=== PATIENT | male | born 1960 | race Caucasian/White ===

== ENCOUNTER → 2017-08-23 08:18 | Outpatient (CLI) | payer BC, SELFPAY ==
[2017-08-23 09:34] LABS: Cholesterol 172 mg/dL (200); Glucose 91 mg/dL (74-106); High Density Lipoprotein 46 mg/dL; PSA,Total - Annual Screen 0.26 ng/mL (0.00-4.00); Triglycerides 56 mg/dL; Very Low Density Lipoprotein 11 mg/dL (5-40)
== END ==
PROVIDERS: Family Provider Nurse Practitioner Family; PCP Nurse Practitioner Family; Visit Provider Nurse Practitioner Family
DX: Z12.5 Encounter for screening for malignant neoplasm of prostate (principal); Z13.6 Encounter for screening for cardiovascular disorders; Z13.1 Encounter for screening for diabetes mellitus
CPT/HCPCS: 36415; 80061; 82947; 84153; G0103

== ENCOUNTER 2019-01-07 06:46 | Emergency (ER) | payer BC, SELFPAY ==
[2019-01-07 06:47] VITALS: BP 143/92; PULSE 79; RESP 18; TEMP 36.6; O2SAT 100; BMI 22.7
--- NOTE | 2019-01-07 08:05 | ED.VIS.GEN ---
History of Present Illness Chief Complaint: Other, Pain/Inj Narrative: Patient presenting due to concern for the possibility of a hernia. Patient states that he was lifting something at work and he felt a sudden onset of pain in his right groin with bulging in that area. Patient states that the pain and bulging seems to get worse when he stands better when he lays flat. Patient states that he is never had any prior similar episodes like this in the past. Pain is mild, worse with Valsalva or standing or lifting. He denies any nausea or vomiting. Patient has a underlying history of having a laparoscopic appendectomy in the past. Review of systems otherwise negative. Past Medical History - Allergies and Home Meds Allergies/Adverse Reactions: Allergies No Known Allergies Allergy (Verified 01/07/19 06:49) Primary Care Physician: Jose Coughlin NP-C [Primary Care Provider] - Past Medical History: None Surgical History: appendectomy Smoking Status: Current every day smoker Review of Systems All systems negative except as indicated Genitourinary: Reports: - - Inguinal pain and bulging Physical Exam Vital Signs/Narrative: Vital Signs Temp Pulse Resp BP Pulse Ox 01/07/19 06:47 98 F 79 18 143/92 H 100 General: Well nourished, Well developed, No Acute Distress Head: Normocephalic, Atraumatic Eyes: Perrl, EOMI ENT: Moist mucous membranes, No rhinorrhea Neck: Supple, Nontender Cardiovascular: Regular rate, Regular rhythm, No murmurs Respiratory: No distress, CTA bilaterally, Chest nontender Abdomen: Soft, Nontender, Nondistended, Normal bowel sounds : - - exam demonstrates testicles and a normal lie. Standing or Valsalva is able to reproduce a direct inguinal hernia with a palpable defect in the patient's inguinal ring. This is reducible with pressure. It is tender to palpation. No evidence of overlying skin changes. Back: Nontender, Normal Inspection Extremities: Nontender, No edema Skin: Normal color, No rash Neurological: Alert, Oriented x3, Cranial nerves II-XII grossly intact, Normal Strength, Normal Sensation Psychological: Normal affect, Normal Mood Diagnostic/Tx/Re-eval - Medical Decision Making Patient presented secondary to bulging in his groin. Physical exam demonstrates a direct reducible inguinal hernia with a palpable defect in the patient's inguinal canal. Patient will be placed on lifting restrictions for work. As this is easily reproducible and the patient simply just stands, I am suspicious that the patient likely will require surgical repair. Patient has had surgery with Dr. Lyon in the past, requests referral back to Dr. Lyon. Patient also will follow-up with [facility]. ED Disposition - Plan for ED Patient: Disposition: Home or Assisted Living Diagnosis: Direct inguinal hernia of right side Instructions: HERNIA (Inguinal, Ventral, Umbilical) Referrals: Gael Lyon MD [STAFF PHYSICIAN] - As soon as possible [facility] [GROUP OF PHYSICIANS] - As soon as possible
[2019-01-07 08:25] VITALS: BP 115/85; PULSE 79; RESP 16; O2SAT 98
== END 2019-01-07 08:26 | disposition home or self-care (01) ==
LOC: ED 08:19
PROVIDERS: Emergency Provider Emergency Medicine; Family Provider Nurse Practitioner Family; PCP Nurse Practitioner Family
DX: K40.90 Unilateral inguinal hernia, without obstruction or gangrene, not specified as recurrent (principal); F17.200 Nicotine dependence, unspecified, uncomplicated
CPT/HCPCS: 99282

== ENCOUNTER 2019-02-20 05:57 | Day surgery (SDC) | payer BC, SELFPAY ==
[2019-02-12 15:05] VITALS: BMI 22.7
--- NOTE | 2019-02-19 06:12 | EKG12_ITS ---
Test Reason : PRE-OP Blood Pressure : / mmHG Vent. Rate : 067 BPM Atrial Rate : 067 BPM P-R Int : 148 ms QRS Dur : 092 ms QT Int : 404 ms P-R-T Axes : 067 060 044 degrees QTc Int : 426 ms Normal sinus rhythm Normal ECG Confirmed by LURDES MARISCAL, DAVY ([id number]), technical editor FREDA ESPINOZA ([id number]) on 02/25/2019 11:13:42 AM Referred By: Gael Lyon Confirmed By:VIPUL CHATMAN MD
[2019-02-19 07:26] LABS: Hematocrit 46.2 % (40-54); Hemoglobin 15.4 g/dL (13.0-16.5); Mean Corp Hgb Conc 33.3 g/dL (32-36); Mean Corpuscular Hgb 31.9 pg (27.0-32.0); Mean Corpuscular Volume 95.7 fL (80-94); Mean Platelet Vol. 11.3 fl (6.2-12.0); Platelet Count 184 K/mm3 (150-450); RBC Distribution Width CV 13.3 % (11.6-14.6); RBC Distribution Width SD 47.1 fl (35.1-43.9); Red Blood Count 4.83 M/mm3 (4.6-6.2); White Blood Count 8.2 K/mm3 (4.4-11.0)
[2019-02-20 06:25] VITALS: BP 109/85; PULSE 69; RESP 16; TEMP 36.4; O2SAT 97; BMI 23.1
[2019-02-20] MEDS: Lactated Ringers 1,000 ML 100 ML IV ×2 (06:45→09:35)
--- NOTE | 2019-02-20 07:13 | PCM.HP.BLA ---
History and Physical Date of Admission: 02/20/19 [facility] [address] [place], [place] [address] OFFICE VISIT Date of Service: 02/12/19 MR#: [id number] Acct: [id number] Name: ANTHONY KAMARA Rep #: [id number] : 1960 Provider: Gael Lyon MD Age/Sex: 58/M Location: [facility] Status: Signed Intake Vital Signs 02/12/19 Body Mass Index (BMI) 22.7 02/12/19 Height 6 ft 3 in 02/12/19 Weight: 184 lb 02/12/19 Body Mass Index (BMI) 23.0 02/12/19 Blood Pressure 140/85 H 02/12/19 Blood Pressure Location Rt brachial 02/12/19 Respiratory Rate 18 02/12/19 Pulse Rate 76 02/12/19 Pulse Source Monitor 02/12/19 Temperature 98.8 F 02/12/19 Temperature Source Oral 02/12/19 Pulse Ox 100 02/12/19 Oxygen Delivery Method room air Intake Visit Reasons: Update H & P 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 Is patient in pain?: No Allergies No Known Allergies Allergy (Verified 02/17/19 15:13) Medications NK 01/07/19 [History Confirmed 02/17/19] [facility] Medical History Right inguinal hernia (Acute) Surgical History History of appendectomy (Acute) History of colonoscopy (Acute) Family History Father Heart disease Social History (Updated 02/19/19 @ 12:09 by Gael Lyon MD) Smoking Status: Current every day smoker HPI HPI HPI: ANTHONY KAMARA, is a 58 M who presents to the office today for HPI HPI Surgical H&P: Yes HPI: ANTHONY KAMARA, is a 58 M who presents to the office today for Evaluation for right inguinal hernia. Patient was working at work last Saturday (01/06/2019) states that he was lifting something at work felt the sudden onset of pain in his right groin area with a bulge in that area. Patient states that the pain is worse when he is standing and is better when he is laying flat. He has never had any prior episodes like this.Patient states that the pain is mildly worse when he Valsalvas or is lifting. He denies any nausea or vomiting. I have performed a laparoscopic appendectomy in the remote past. Patient was seen in the emergency department subsequently is had a workers Application filled out.He is currently on light duty no more than 20 pounds. ROS General General: No weight change, appetite, fatigue, colon cancer, breast cancer or weakness HEENT HEENT: No difficulty swallowing, eye injury, eye surgery, swollen glands or hoarseness Endo Endocrine: No thyroid disease, diabetes mellitus, thyroid cancer, Hair loss, heat intolerance or cold intolerance Musc Musculoskeletal: No back problems, arthritis, rheumatoid arthritis, gout or joint pain Cardio Cardiovascular: No murmur, pacemaker, heart disease, atrial fibrillation, high blood pressure, heart attack, heart stent, palpitations, shortness of breat with exertion or chest pain Resp Respiratory: No shortness of breath, No sleep apnea, No cough, No COPD, No asthma, No emphysema, No wheezing Gastro Gastrointestinal: No abdominal pain, No nausea or vomiting, No diarrhea, No constipation, No blood in stool, No acid reflux, No hemorrhoids, No ulcers, No gallbladder problem, No black,tarry stools Jadon Hematologic: No blood thinners, No blood disorders, No bleeding, No anemia, No blood clots Neuro Neurologic: No weakness Exam Const General: no acute distress, well developed, well hydrated Orientation: oriented to person, oriented to place, oriented to time [facility] Head: normocephalic, atraumatic Ears: external ears normal Mouth: moist mucous membranes Eyes Sclera: sclerae normal Pupils: normal by confrontation Neck Neck: no lymphadenopathy noted Neck mass: No Thyroid: thyroid normal, symmetrical Chest Chest palpation & inspection: normal inspection of the chest Resp Effort & Inspection: normal respiratory effort Auscultation: clear to auscultation bilaterally Percussion: percussion normal Cardio Rate: regular rate Rhythm: regular rhythm Heart Sounds: no murmurs GI Palpation: soft, no hepatosplenomegaly, no masses, tender Rectal Exam: other Other: Large reducible right inguinal hernia is palpated. Rectal exam deferred. Extrem General: normal to inspection, no clubbing, cyanosis or edema Assessment & Plan Problems 1. Right inguinal hernia K40.90 Plan My plan is to perform a Open right inguinal hernia repair with mesh. The planned surgical procedure was discussed extensively with the patient. The risks, benefits, anticipated outcomes and possible complication were mentioned. The patient understands that all hernia repair surgery has a chance of recurrence and/or chronic post-operative pain. My staff has also explained the procedure in understandable terms and the patient was given the option to take printed material concerning the planned procedure. The patient had the opportunity to ask questions concerning the planned procedure. The patient freely consents to the planned procedure. Coding Level of Care Code Off vis,est,level 3 Diagnoses Right inguinal hernia K40.90 02/19/19 1209 <Electronically signed by Gael Lyon MD> Date Gael Lyon MD Cosigner Signature: Date (if applicable) CC: ~ I have re-examined the patient. There are no clinical changes since date of exam.
[2019-02-20] MEDS: Cefazolin 2 GM in 0.9% Normal Saline 100 ML IV (08:07)
--- NOTE | 2019-02-20 08:15 | HERN_PTH ---
PATIENT: ANTHONY KAMARA [place] [facility] [id number] AGE/SX: 58/M ROOM: RE02/20/[address]: Dr. Gael Lyon MD : 1960 BED: DIS: 02/20/2019 SPEC #: [id number] RECD: 02/20/19 11:54 STATUS: BO ZULEMA #: [id number] IRIS: 02/20/19 08:[address]: Gael Lyon DEPT: SURGICAL PATHOLOGY RECD BY: Sudhir Beck ENTERED: 02/20/19 13:06 SP TYPE: Hernia OTHR DR: MD Jose Herrera, SHADE HANGER-Angel Tissues: HERNIA Procedures: Surgery Specimen Level II HEADER OPERATION: Inguinal hernia with mesh PRE-OP DIAGNOSIS: Right inguinal hernia TISSUE SUBMITTED: Hernia sac MICROSCOPIC DIAGNOSIS Hernia sac: A piece of fibroadipose and fibroconnective tissue, consistent with hernia sac with chronic inflammation and reactive changes. SJ:juan 02/23/19 MICROSCOPIC DESCRIPTION Slides are reviewed. GROSS DESCRIPTION Received in fixative is one container labeled with the patient's name and designated hernia sac. The specimen consists of an irregular piece of soft tissue measuring 8 x 4 x 0.5 cm. No mass lesion is identified. 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 / Isaias 02/20/19 TC:5 [facility]: [id number]
--- NOTE | 2019-02-20 08:56 | PCM.OPRPT ---
Problem List (1) Right inguinal hernia Status: Acute Report of Operation Date of Procedure: 02/20/19 Pre-Operative Diagnosis: Right inguinal hernia Post-Operative Diagnosis: Same Surgery/Procedure Performed:: Open right inguinal hernia repair with Bard mesh plug reference #[id number] lot number [id number] Type of Anesthesia:: General Anesthesiologist: Gio Song Specimen's removed: Hernia sac Estimated Blood Loss (mL): < 25 cc Fluids Replaced: 500 cc LR Description of Procedure: Patient was brought into the operating room. Placed in the supine position. Under excellent general trach intubation right inguinal area was sterilely prepped and draped in usual fashion local was injected inguinal incision was made dissection was carried down to the inferior superior epigastric vessels these were tied off with 0 Vicryl ties. External oblique fascia was open ilioinguinal nerve was identified and was spared medially. I dissected out an extremely large hernia on the anterior medial aspect of the cord and vessel structures I transected this and then placed it back into its preperitoneal space the patient had a lot of fibrous the tissue all along the cord and vessel structures that I did not feel was appropriate for me to try to remove her dissect free for fear of injuring the blood supply to the testicle therefore I left it. I fashioned a lecture large mesh plug into the defect and sutured in 3 places with 0 Prolene sutures and onlay piece of mesh was then placed into the inguinal floor contacted to the pubic tubercle with 2 sutures of 0 Prolene 1 of the sutures one along the ilioinguinal ligament the other one 1 along with shelving edge of the transversalis fascia they were brought superiorly cord and vessel structures as well as the ilioinguinal nerve was brought through the lisa ring hole and I tied the 2 sutures superior to the lisa ring hole making sure there was enough space to have my fifth finger go into the lisa ring which it did without difficulty. Local was injected. Extra oblique fascia was then brought together with a 2-0 Vicryl. Deep dermals of 3-0 Vicryl running 4-0 Monocryl. Dermabond was applied sterile dressings were applied and the patient tolerated the procedure well. - Admit VTE Documentation VTE Present on Admission: No VTE Mechan Device Prophylaxis: SCD's VTE Pharm Prophylaxis ordered?: No Reason prophylaxis not ordered:: Treatment Not Indicated
[2019-02-20] MEDS: Bupivacaine Mpf 0.5% 30 ML VIAL (08:57)
--- NOTE | 2019-02-20 09:01 | DCINST_ITS ---
Discharge Diet: Light diet - advance as tolerated Discharge Activity: Return to Normal Activity, May Drive - when you are no longer taking narcotic pain medications., May Shower - with the bandage in place 1-2 days after surgery. Lifting Restrictions: 20 pounds for 8 weeks. Additional Activity Instructions:: Climbing stairs is fine, walking is encouraged. Sitting in bed may be uncomfortable. Sitting up using your lateral muscles (sitting up sideways) is usually more comfortable. Do not drive, work heavy equipment of sign legal documents for 24 hours. If your hernia repair was an ingunial repair, you may have scrotal swelling, an ice pack and/or athletic support can provide more comfort. Pain medications may cause nausea, you should typically eat light foods as you take your pain medications. Pain medications may also cause constipation. If you have difficulty with this, discuss with your doctor. Call your doctor if your incision/area has: Continuous Slow Oozing, Sudden Increased Bleeding, Increased Pain/ Swelling, Increased Redness, Foul Smelling Discharge Call your doctor if you observe: Fever of 101 or Higher Suture Line Care: Avoid Pulling/Pushing, Avoid Pinching/Bending Additional Dressing/Incision Instructions:: Leave the operative bandage on for 2-3 days. When you remove the bandage, leave the steri-strips on place until your follow up appointment or they fall off. Allergies/Adverse Reactions: Allergies No Known Allergies Allergy (Verified 02/20/19 06:23) Medications to take at Discharge NK 01/07/19 Primary Care Physician: Jose Coughlin, COCKTAIL SERVER-C [Primary Care Provider] - Test Results: Test results from this visit will be discussed in further detail at your follow- up appointment, if applicable. Please Follow Up With: Gael Lyon MD - [phone] When: Plan to have a follow up appointment in 7 days. Call to schedule.
[2019-02-20 09:23] VITALS: BP 101/67; BP 109/85; PULSE 72; RESP 18; TEMP 36.9; O2SAT 94
[2019-02-20 09:30] VITALS: BP 109/85; BP 90/66; PULSE 68; RESP 14
[2019-02-20 09:50] VITALS: BP 101/67; BP 109/85; PULSE 72; RESP 16; TEMP 36.5; O2SAT 95
[2019-02-20 11:07] VITALS: BP 109/85; BP 112/70; PULSE 63; RESP 16; TEMP 36.4; O2SAT 97
== END 2019-02-20 11:15 | disposition home or self-care (01) ==
LOC: SDC 05:59 → AC 05:59
PROVIDERS: Family Provider Nurse Practitioner Family; PCP Nurse Practitioner Family; Referring Provider Surgery; Visit Provider Surgery
PROC: (CPT 49505; principal; 2019-02-20 08:00)
DX: K40.90 Unilateral inguinal hernia, without obstruction or gangrene, not specified as recurrent (principal); F17.200 Nicotine dependence, unspecified, uncomplicated
CPT/HCPCS: 00830; 49505; 36415; 85027; 88302; 93005; J7120; C1781; J2405

== ENCOUNTER → 2019-11-14 | Outpatient (CLI) | payer BC, SELFPAY ==
[2019-11-14 09:08] LABS: PSA,Total - Annual Screen 0.43 ng/mL (0.00-4.00)
== END | disposition home or self-care (01) ==
LOC: LAB.FUTURE 07:26 → LAB 11-16 06:38
PROVIDERS: PCP Nurse Practitioner Family; Referring Provider Nurse Practitioner Family; Visit Provider Nurse Practitioner Family
DX: Z12.5 Encounter for screening for malignant neoplasm of prostate (principal)
CPT/HCPCS: 36415; 84153; G0103

== ENCOUNTER → 2019-12-09 07:52 | Outpatient (CLI) | payer BC, SELFPAY ==
[2019-12-09 09:53] LABS: Cholesterol 196 mg/dL (200); Glucose 100 mg/dL (74-106); High Density Lipoprotein 51 mg/dL; Triglycerides 58 mg/dL; Very Low Density Lipoprotein 12 mg/dL (5-40)
== END ==
PROVIDERS: PCP Nurse Practitioner Family; Referring Provider Nurse Practitioner Family; Visit Provider Nurse Practitioner Family
DX: Z13.220 Encounter for screening for lipoid disorders (principal); Z13.1 Encounter for screening for diabetes mellitus; Z12.5 Encounter for screening for malignant neoplasm of prostate
CPT/HCPCS: 80061; 82947

== ENCOUNTER 2020-03-09 14:03 | Emergency (ER) | payer BC, SELFPAY ==
[2020-03-09 14:06] VITALS: BP 121/96; PULSE 77; RESP 18; TEMP 36.2; O2SAT 98; BMI 21.9
--- NOTE | 2020-03-09 15:32 | EKG12_ITS ---
Test Reason : DIZZINESS Blood Pressure : / mmHG Vent. Rate : 067 BPM Atrial Rate : 067 BPM P-R Int : 136 ms QRS Dur : 088 ms QT Int : 388 ms P-R-T Axes : 065 069 053 degrees QTc Int : 409 ms Sinus rhythm with occasional Premature ventricular complexes Otherwise normal ECG Confirmed by LURDES MARISCAL, DAVY ([id number]), editor city [place] ([id number]) on 03/10/2020 1:01:06 PM Referred By: DAJUAN Confirmed By:VIPUL CHATMAN MD
[2020-03-09 15:37] VITALS: O2SAT 97
[2020-03-09 15:58] LABS: Absolute Lymphocyte Count 2.06 X10^3/uL (0.83-4.51); Absolute Neutrophil Count 10.7 X10^3/uL (2.0-7.7); Basophil# 0.07 X10^3/uL; Basophil% 0.5 % (0-1); Eosinophil# 0.08 X10^3/uL; Eosinophils% 0.6 % (0-5); Hematocrit 46.8 % (40-54); Hemoglobin 15.8 g/dL (13.0-16.5); Lymphocyte # 2.06 X10^3/ul (4.0); Lymphocyte % 15.1 % (19-41); Mean Corp Hgb Conc 33.8 g/dL (32-36); Mean Corpuscular Hgb 32.6 pg (27.0-32.0); Mean Corpuscular Volume 96.7 fL (80-94); Mean Platelet Vol. 11.6 fl (6.2-12.0); Monocyte# 0.74 X10^3/uL; Monocyte% 5.4 % (0-10); NRBC Flagged by Analyzer 0 % (0-5); Neutrophil # 10.66 X10^3/uL (2.7-7.7); Neutrophil % 78.1 % (47-70); Platelet Count 177 K/mm3 (150-450); RBC Distribution Width CV 12.7 % (11.6-14.6); RBC Distribution Width SD 45.4 fl (35.1-43.9); Red Blood Count 4.84 M/mm3 (4.6-6.2); White Blood Count 13.7 K/mm3 (4.4-11.0)
[2020-03-09 16:03] LABS: International Normalized Ratio 0.9
[2020-03-09 16:04] LABS: Partial Thromboplast Time 23.5 Seconds (24.1-36.2)
[2020-03-09 16:11] VITALS: BP 105/72; PULSE 66; RESP 18; O2SAT 98
[2020-03-09 16:17] LABS: Anion Gap 5 (5-15); BUN 23 mg/dL (7-18); BUN/Creat Ratio 18.3 RATIO (10-20); Calcium,Total 9.1 mg/dL (8.5-10.1); Chloride 110 mmol/L (98-107); Creatinine, Serum 1.26 mg/dL (0.70-1.30); EST Glomerular Filtration Rate 62 mL/min (>60); Est Glom Filt Rate - Afr Amer 75 mL/min (>60); Glucose 108 mg/dL (74-106); Potassium 4.3 mmol/L (3.5-5.1); Sodium Level 140 mmol/L (136-145)
--- NOTE | 2020-03-09 16:27 | CT_ITS ---
STUDY: CTA HEAD AND NECK WITH CONTRAST REASON FOR EXAM: Male, 59 years old. PATIENT FOUND LAYING IN BED WITH VOMIT AND BM. PT IS VERY AGITATED RADIATION DOSAGE (If Supplied By Facility): CTDIvol = ( 27.96 ) mGy, DLP = ( 1670.85 ) mGycm TECHNIQUE: CT angiography was performed with a multi-detector CT scanner. Data acquisition was obtained from the skull base through the vertex following intravenous administration of IV 100mL Isovue-370. MIP images were reconstructed from the axial data set. Post-processing of the angiographic images was performed, with multiplanar reformation and 3D reconstruction. Individualized dose optimization techniques were used for this CT. COMPARISON: No relevant priors. FINDINGS: There is no acute bleed or infarct. There is no hydrocephalus. Normal bilateral petrous carotid arteries. Normal right cavernous carotid artery with a normal supraclinoid bifurcation. Normal left cavernous carotid artery with a normal supraclinoid bifurcation. Normal right A1 segments of the anterior cerebral artery. Normal left A1 segments of the anterior cerebral artery. Normal intact anterior communicating artery (ACOM). Normal bilateral A2 segments of the anterior cerebral arteries. Normal right M1 and M2 segments of the middle cerebral arteries, with a normal M1 bifurcation. Normal left M1 and M2 segments of the middle cerebral arteries, with a normal M1 bifurcation. Normal right posterior communicating artery (PCOM). Normal left posterior communicating artery (PCOM). Normal bilateral vertebral arteries. Normal basilar artery with a normal basilar bifurcation. The visualized bilateral superior cerebellar (SCA) arteries are normal. Normal bilateral P1, P2 and visualized P3 segments of the posterior cerebral arteries. There is no demonstrated aneurysm of the resighini of [place]. There is no demonstrated abnormality of the visualized brain. AORTIC ARCH: Normal visualized aortic arch. Normal origins of the brachiocephalic, left common carotid, and left subclavian arteries. RIGHT CAROTID ARTERIES: Normal right common carotid artery (CCA). Normal right common carotid bulb. Normal origin of the right internal carotid (ICA) artery without a hemodynamically significant stenosis. Normal visualized cervical portion of the right internal carotid artery. Normal origin of the right external carotid artery (ECA). LEFT CAROTID ARTERIES: Normal left common carotid artery (CCA). Normal left common carotid bulb. Normal origin of the left internal carotid (ICA) artery without a hemodynamically significant stenosis. Normal visualized cervical portion of the left internal carotid artery. Normal origin of the left external carotid artery (ECA). VERTEBRAL ARTERIES: Normal bilateral vertebral arteries. CT/CTA Head AND Neck W/ Contrast IMPRESSION: No acute intracranial abnormality. Normal CTA Head and neck with contrast. Electronically Signed: Simón Miguel, at 16:55 EST Tel , Service support ,
--- NOTE | 2020-03-09 16:37 | ED.DCSUM_ITS ---
History of Present Illness Chief Complaint: Dizziness Narrative: Patient presents with vertigo. He saw his ENT physician who sent him to the emergency department. He has chronic recurrent vertigo he was placed on steroids but did not significantly improve. He has no fever chills cough or congestion. However at this time he is mostly asymptomatic. He tells me the vertigo is mostly when he turns to the right in a certain way, he gets a paroxysm that lasts a few seconds and goes away. No disequilibrium no vision changes no headache. Past Medical History - Allergies and Home Meds Allergies/Adverse Reactions: Allergies No Known Allergies Allergy (Verified 03/09/20 14:08) Primary Care Physician: Jose Coughlin ASTHMA EDUCATOR, ASTHMA EDUCATOR-C [Primary Care Provider] - Past Medical History: None Surgical History: appendectomy Smoking Status: Current every day smoker Review of Systems General: Reports: - - Vertigo as in HPI. Denies: Fever Eyes: Denies: Visual changes - left ENT: Denies: Bilateral ear pain Cardiovascular: Denies: Chest pain Respiratory: Denies: Dyspnea, Cough Musculoskeletal: Denies: Myalgias Skin: Denies: Rash Neurological: Denies: Headache, Weakness Psych: Denies: Depression, Anxiety Endocrine: Denies: Polyuria Hematologic: Denies: Easy bruising Allergy: Denies: Swelling of the tongue Physical Exam Vital Signs/Narrative: Vital Signs Temp Pulse Resp BP Pulse Ox 03/09/20 16:11 66 18 105/72 98 03/09/20 15:37 97 03/09/20 14:06 97.2 F L 77 18 121/96 H 98 General: Well nourished Head: Normocephalic Eyes: Perrl, EOMI ENT: Moist mucous membranes Cardiovascular: Regular rate Respiratory: No distress Abdomen: Soft, Nontender Back: Nontender, Normal Inspection Extremities: Nontender, No edema Skin: Normal color Neurological: Alert, Oriented x3, Normal Strength, Normal Sensation, - - Normal cerebellar. Negative Romberg normal gait Diagnostic/Tx/Re-eval - Rhythm Strip Rhythm Strip: Sinus Rhythm Rate: 67 Ectopy: None - EKG Initial EKG Interpretation: - - Sinus rhythm with a rate of 67. Normal NC and QTc interval. No ischemic changes. PVCs seen. Interpreted by emergency doctor - Medical Decision Making Patient has a normal emergency department work-up he appears well. He is reassured he can follow-up with his ENT. His symptoms are consistent with benign paroxysmal positional vertigo. ED Disposition - Plan for ED Patient: Disposition: Psych[facility] Hospital or Unit Diagnosis: BPPV (benign paroxysmal positional vertigo) Instructions: ED BPV Vertigo Additional Instructions: Follow-up with your ENT doctor in the next few days
[2020-03-09 17:07] VITALS: BP 119/88; PULSE 71; RESP 18; O2SAT 97
[2020-03-09 17:29] VITALS: BP 131/83; PULSE 68; RESP 18; O2SAT 97
[2020-03-09 17:40] VITALS: BP 125/78; PULSE 65; RESP 18; TEMP 36.1
== END 2020-03-09 17:56 | disposition home or self-care (01) ==
PROVIDERS: Emergency Provider Emergency Medicine; PCP Nurse Practitioner Family
DX: H81.10 Benign paroxysmal vertigo, unspecified ear (principal); F17.200 Nicotine dependence, unspecified, uncomplicated
CPT/HCPCS: 70496; 70498; 80048; 84484; 85025; 85610; 85730; 93005; 99284; Q9967; A4216

== ENCOUNTER 2021-06-03 08:03 | Outpatient (CLI) | payer BC, SELFPAY ==
[2021-06-04 00:47] LABS: ALB/GLOB Ratio 1.2 RATIO (0.9-2.4); AST(SGOT) 9 U/L (15-37); Alanine Aminotransfer ALT/SGPT 21 U/L (16-61); Albumin, Serum 3.7 g/dL (3.2-5.0); Alkaline Phosphatase 67 U/L (45-117); Anion Gap 4 (5-15); BUN 18 mg/dL (7-18); BUN/Creat Ratio 18.1 RATIO (10-20); Chloride 108 mmol/L (98-107); Cholesterol 193 mg/dL (200); Creatinine, Serum 0.99 mg/dL (0.70-1.30); Globulin 3.1 g/dL (2.2-4.2); Glucose 103 mg/dL (74-106); High Density Lipoprotein 50 mg/dL; PSA,Total - Annual Screen 0.23 ng/mL (0.00-4.00); Potassium 3.9 mmol/L (3.5-5.1); Protein, Total 6.8 g/dL (6.4-8.2); Sodium Level 138 mmol/L (136-145); Triglycerides 61 mg/dL; Very Low Density Lipoprotein 12 mg/dL (5-40)
== END 2021-06-03 23:59 | disposition short-term general hospital (02) ==
LOC: LAB 18:12
PROVIDERS: PCP Nurse Practitioner Family; Referring Provider Nurse Practitioner Family; Visit Provider Nurse Practitioner Family
DX: Z00.00 Encounter for general adult medical examination without abnormal findings (principal); Z13.1 Encounter for screening for diabetes mellitus; Z13.220 Encounter for screening for lipoid disorders; Z12.5 Encounter for screening for malignant neoplasm of prostate
CPT/HCPCS: 36415; 80053; 80061; 84153; G0103

== ENCOUNTER → 2023-03-14 | Outpatient (CLI) | payer OTHER, SELFPAY ==
[2023-03-14 13:54] LABS: PSA,Total - Annual Screen 0.46 ng/mL (0.00-4.00)
== END | disposition home or self-care (01) ==
PROVIDERS: PCP Nurse Practitioner Family; Referring Provider Nurse Practitioner; Visit Provider Nurse Practitioner
DX: Z12.5 Encounter for screening for malignant neoplasm of prostate (principal)
CPT/HCPCS: 36415; 84153; G0103

== ENCOUNTER → 2023-04-08 | Outpatient (CLI) | payer OTHER, SELFPAY ==
--- NOTE | 2023-04-08 | BLB_PTH ---
PATIENT: ANTHONY KAMARA LOC: [facility] U#:[id number] AGE/SX: 62/M ROOM: RE04/08/[address]: Dr. Perez Kumar MD : 1960 BED: DIS: 04/08/2023 SPEC #: [id number] RECD: 04/08/23 12:57 STATUS: BO RERivas #: [id number] IRIS: 04/08/23 00:[address]: Perez Kumar DEPT: SURGICAL PATHOLOGY RECD BY: Azael Cosme ENTERED: 04/08/23 12:58 SP TYPE: TURB OTHR DR: Jose Coughlin, GRISELDA-Angel [facility] Tissues: Urinary bladder, NOS Procedures: Surgery Specimen Level V HEADER OPERATION: Bilateral transurethral resection of bladder tumor PRE-OP DIAGNOSIS: Abnormal radiologic findings on diagnostic imaging of renal pelvis, ureter or bladder TISSUE SUBMITTED: Bladder tissue, surgical site MICROSCOPIC DIAGNOSIS Bladder, transurethral resection: Urothelial carcinoma in situ. See cancer summary in the comment section. SJ:rg 04/09/2023 COMMENT BLADDER CANCER (TUR) SUMMARY Procedure: Transurethral resection of bladder tumor (TURBT) Tumor site: Not specified Histologic type: Urothelial carcinoma in situ Associated epithelial lesions: None identified Histologic grade: High grade (3/3) Tumor configuration: Flat Muscularis propria presence: Muscularis propria (detrusor muscle) is present and free of tumor. Lymphvascular invasion: Not identified Tumor extension: Carcinoma in situ. Additional pathologic findings: Chronic inflammation. PATHOLOGIC STAGE: pTis pNx pMx The above summary is in compliance with [employer] [place] [employer] (CAP) Cancer Protocols Checklist and [place] [employer] Committee on Cancer (AJCC), Staging Manual, 8th Ed. Immunohistochemistry ([id number]) supports the above diagnosis. Correlation with clinical, cystoscopy findings and appropriate follow up are necessary. Case has been reviewed in consultation with Dr. Colby who concurs with the above diagnosis. IDC:AM MICROSCOPIC DESCRIPTION Slides are reviewed. GROSS DESCRIPTION Received in fixative is one container labeled with the patient's name and designated bladder tissue. The specimen consists of multiple irregular fragments of cano-brown soft tissue that in aggregate measure 1.5 x 1.0 x 0.3 cm. The specimen is totally submitted in one cassette. / VIDHYA:juan 04/08/2023 TC:0 CPT: 90936
--- NOTE | 2023-04-08 | IMM_PTH ---
PATIENT: ANTHONY KAMARA LOC: [facility] U#:[id number] AGE/SX: 62/M ROOM: RE04/08/[address]: Dr. Perez Kumar MD : 1960 BED: DIS: 04/08/2023 SPEC #: [id number] RECD: 04/09/23 12:42 STATUS: BO REQ #: [id number] IRIS: 04/08/23 00:[address]: Perez Kumar DEPT: IMMUNOHISTOCHEMISTRY RECD BY: Shruti Bucio ENTERED: 04/09/23 12:43 SP TYPE: IMMUNO OTHR DR: Jose Coughlin, RETREAD SUPERVISOR-C Tissues: Urinary bladder, NOS Procedures: CK20 (add) KI-67 (add) P53 (add) CK7 (initial) PHYSICIAN & INSTITUTION [place] [id number] SPECIMEN INFORMATION: Tissue Source: Bladder Clinical Info: Abnormal imaging of bladder Specimen Number: [id number] CPT code: 69829, 99172 x3 METHODOLOGY: Deparaffinized sections of prefer/formalin-fixed tissue or PAP/DQ stained slides are incubated with monoclonal/polyclonal antibodies/oligonucleotide probes. Localization is made via biotin free immunoperoxidase method. Appropriate controls are performed and reacted as expected. 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 They may not have been cleared or approved by the U.[place]. Food and Drug Administration. The FDA has determined that such clearance or approval is not necessary. The above immunohistochemical/dualISH markers are ordered and reviewed by the Pathologist. INTERPRETATION: Bladder, transurethral resection: Flat carcinoma in situ. SJ:juan 04/10/2023 Case has been reviewed in consultation with Dr. Colby who concurs with the above diagnosis. IDC:AM
== END | disposition home or self-care (01) ==
PROVIDERS: PCP Nurse Practitioner Family; Visit Provider Urology
DX: D09.0 Carcinoma in situ of bladder (principal)
CPT/HCPCS: 88307; 88341; 88342

== ENCOUNTER → 2023-09-17 | Outpatient (CLI) | payer OTHER, SELFPAY ==
[2023-09-17 10:02] LABS: Hematocrit 48.4 % (40-54); Mean Corp Hgb Conc 33.1 g/dL (32-36); Mean Corpuscular Hgb 31.6 pg (27.0-32.0); Mean Corpuscular Volume 95.5 fL (80-94); Mean Platelet Vol. 11.7 fl (6.2-12.0); Platelet Count 193 K/mm3 (150-450); RBC Distribution Width CV 13.6 % (11.6-14.6); RBC Distribution Width SD 47.9 fl (35.1-43.9); Red Blood Count 5.07 M/mm3 (4.6-6.2); White Blood Count 7.4 K/mm3 (4.4-11.0)
[2023-09-17 11:19] LABS: Anion Gap 3 (5-15); BUN 23 mg/dL (7-18); BUN/Creat Ratio 20.7 RATIO (10-20); Calcium,Total 10.1 mg/dL (8.5-10.1); Chloride 108 mmol/L (98-107); Creatinine, Serum 1.11 mg/dL (0.70-1.30); EST Glomerular Filtration Rate 71 mL/min (>60); Est Glom Filt Rate - Afr Amer 86 mL/min (>60); Glucose 108 mg/dL (74-106); Potassium 4.2 mmol/L (3.5-5.1); Sodium Level 139 mmol/L (136-145)
== END | disposition home or self-care (01) ==
LOC: LAB 09:37
PROVIDERS: PCP Nurse Practitioner Family; Referring Provider Urology; Visit Provider Urology
DX: Z01.812 Encounter for preprocedural laboratory examination (principal)
CPT/HCPCS: 36415; 80048; 85027

== ENCOUNTER → 2023-10-04 | Outpatient (CLI) | payer OTHER, SELFPAY ==
--- NOTE | 2023-10-04 | BLA_PTH ---
PATIENT: ANTHONY KAMARA LOC: [facility] U#:[id number] AGE/SX: 63/M ROOM: RE10/04/[address]: Dr. Perez Kumar MD : 1960 BED: DIS: 10/04/2023 SPEC #: [id number] RECD: 10/04/23 15:33 STATUS: BO POOLE #: [id number] IRIS: 10/04/23 00:[address]: Perez Kumar DEPT: SURGICAL PATHOLOGY RECD BY: Sapna Jerome ENTERED: 10/07/23 08:04 SP TYPE: BLADDER BX OTHR DR: Jose Coughlin, GRISELDA-Angel [facility] Tissues: Urinary bladder, NOS Procedures: Surgery Specimen Level IV HEADER OPERATION: Bilateral cystoscopy with bladder biopsy and fulguration PRE-OP DIAGNOSIS: Malignant neoplasm of overlapping sites of bladder, malignant neoplasm of tonsillar fossa TISSUE SUBMITTED: Bladder biopsy MICROSCOPIC DIAGNOSIS Urinary bladder, biopsy: Mild chronic cystitis. No evidence of malignancy. EDITH/ 10/08/2023 MICROSCOPIC DESCRIPTION Slides are reviewed. GROSS DESCRIPTION Received in fixative is one container labeled with the patient's name and designated Bladder biopsy. The specimen consists of two irregular fragments of light cano soft tissue that in aggregate measure 0.3 x 0.2 x 0.1 cm. The specimen is totally submitted in one cassette. VIDHYA/ 10/07/23 TC:3 CPT:52241
== END | disposition home or self-care (01) ==
LOC: LABSPEC 16:11
PROVIDERS: PCP Nurse Practitioner Family; Referring Provider Urology; Visit Provider Urology
DX: C67.8 Malignant neoplasm of overlapping sites of bladder (principal); C09.0 Malignant neoplasm of tonsillar fossa
CPT/HCPCS: 88305